=== PATIENT | female | born 1945 | race Caucasian/White ===

== ENCOUNTER 2017-01-30 15:36 | Emergency (ER) | payer MEDICARE, OTHER ==
[~2017-01-30] VITALS: Ht 160 cm; Wt 70.7 kg
[2017-01-30] MEDS ORDERED: SODIUM CHLORIDE FLUSH 3 ML SYR IV PRN (16:00)
[2017-01-30] MEDS ORDERED: ASPIRIN 81 MG CHEW (CHILDREN'S ASA) PO ONE (16:00)
[2017-01-30] MEDS ORDERED: NITROGLYCERIN SUBLINGUAL 0.4 MG (NITROQUICK) TABLET SL PRN (16:00)
[2017-01-30] MEDS ORDERED: ONDANSETRON 2 MG/ML (Z0FRAN) 2 ML VIAL IV ONE (16:00)
[2017-01-30] MEDS ORDERED: SODIUM CHLORIDE FLUSH 10 ML SYR IV PRN (16:00)
[2017-01-30] MEDS ORDERED: SODIUM CHLORIDE 250 ML IV PRN (16:00)
--- NOTE | 2017-01-30 16:19 | NUR ---
1613 nitro given pain 7 1619 pain 0/10
[2017-01-30 16:22] LABS: BASOPHILS % (AUTO) 0 % (0-2); EOSINOPHILS # (AUTO) 0.1 10^3uL; EOSINOPHILS % (AUTO) 1 % (0-4); LYMPHOCYTES # (AUTO) 1.2 X10^3; MEAN CORPUSCULAR HEMOGLOBIN 31.1 PG (26.0-34.0); MEAN CORPUSCULAR HGB CONC 34.2 g/dL (31.0-37.0); MEAN CORPUSCULAR VOLUME 91 FL (80-100); MEAN PLATELET VOLUME 10.4 FL (6.0-9.5); MONOCYTES # (AUTO) 0.4 X10^3; MONOCYTES % (AUTO) 7 % (3-11); NEUTROPHILS % (AUTO) 70 % (51-67); PLATELET COUNT 139 10^3uL (150-450); WHITE BLOOD COUNT 5.68 10^3uL (4.0-11.0)
[2017-01-30 16:40] LABS: ALBUMIN 4.3 g/dL (3.4-5.0); ALKALINE PHOSPHATASE 89 U/L (38-126); ANION GAP 13.4 MEQ/L (3-15); BUN/CREATININE RATIO 23 (10-20); CALCULATED IONIZED CALCIUM 4.3 mg/dL (3.8-4.6); CREATINE KINASE 37 U/L (30-135); TOTAL PROTEIN 7.4 g/dL (6.4-8.5)
[2017-01-30 17:10] LABS: D-DIMER* < 215 ng/mL (0-500)
[2017-01-30 18:29] VITALS: BP 126/61
== END 2017-01-30 17:50 | disposition home or self-care (01) ==
LOC: ED 15:37
DX: R07.89 Other chest pain (principal); Z87.891 Personal history of nicotine dependence
CPT/HCPCS: 36415; 71010; 80053; 82550; 82553; 83880; 84484; 85025; 85379; 85610; 85730; 93005; 99285; A9270; J7050; 93010; 99284

== ENCOUNTER → 2017-02-11 | Outpatient (CLI) | payer MEDICARE, OTHER ==
[2017-02-11 14:44] LABS: ANION GAP 14.9 MEQ/L (3-15)
== END ==
LOC: LAB 13:42
PROVIDERS: ATTEND Family Medicine
DX: I10 Essential (primary) hypertension (principal)
CPT/HCPCS: 36415; 80048